=== PATIENT | male | born 1990 | race Caucasian/White ===

== ENCOUNTER 2016-12-23 18:35 | Inpatient (IN) | payer BC, OTHER ==
[~2016-12-23] VITALS: Ht 185.4 cm; Wt 79.8 kg
[2016-12-23] MEDS ORDERED: DICYCLOMINE HCL 20 MG TABLET PO PRN (22:00)
[2016-12-23] MEDS ORDERED: LORAZEPAM 2 MG/1 ML VIAL IM PRN (22:00)
[2016-12-23] MEDS ORDERED: ACETAMINOPHEN 325 MG TABLET PO PRN (22:00)
[2016-12-23] MEDS ORDERED: diphenhydrAMINE 50 MG CAPSULE PO PRN (22:00)
[2016-12-23] MEDS ORDERED: DIAZEPAM 10 MG TABLET PO PRN ×2 (22:00)
[2016-12-23] MEDS ORDERED: MAG HYDROX/AL HYDROX/SIMETH 30 ML LIQUID UDC PO PRN (22:00)
[2016-12-23] MEDS ORDERED: LOPERAMIDE HCL 2 MG CAPSULE PO PRN ×2 (22:00)
[2016-12-23] MEDS ORDERED: HYDROXYZINE PAMOATE 25 MG CAPSULE PO PRN (22:00)
[2016-12-23] MEDS ORDERED: CLONIDINE HCL 0.1 MG TABLET PO PRN (22:00)
[2016-12-23] MEDS ORDERED: ONDANSETRON 4 MG/2 ML VIAL IM PRN (22:00)
[2016-12-23] MEDS ORDERED: DIAZEPAM 5 MG TABLET PO PRN (22:00)
[2016-12-23] MEDS ORDERED: ONDANSETRON ODT 4 MG TAB.RAPDIS SL PRN (22:00)
[2016-12-23] MEDS ORDERED: IBUPROFEN 600 MG TABLET PO PRN (22:00)
[2016-12-23] MEDS ORDERED: MAGNESIUM HYDROXIDE 30 ML LIQUID UDC PO PRN (22:00)
[2016-12-23] MEDS ORDERED: MIRALAX 17 GM POWD.PACK PO PRN (22:00)
[2016-12-23] MEDS ORDERED: BUPRENORPHINE HCL 2 MG TAB.SUBL SL PRN (22:00)
[2016-12-23 23:00] VITALS: BP 124/75
[2016-12-23] MEDS ORDERED: DIAZEPAM 10 MG TABLET PO SCH (23:00)
--- NOTE | 2016-12-23 23:00 | NUR ---
ADMISSION NOTE Pt is 26 year old male, admitted to [facility] 3rd floor on 12/23/16 at 2223 Skin and body check done no contraband found, skin intact. Pt oriented to unit ad policies, escorted to rm 317. Pt aaox4, cooperative, able to ambulate with steady gait. Pt reports NKA, NKFA. Pt denies having PCP, states she goes to urgent care if needs medical care. Pt denies hospitalizations within last 5 yrs. Pt reports no PMH. Pt denies hx of seizures. Pt states she takes the following medications at home: 1. Trazodone 150 mg PO HS prn for sleep, last time taken 12/21/16 Substance use hx: Per pt, he relapsed 3.5 wks weeks ago after being sober for 37 days; pt provided the following information on drug use: 1. Xanax - pt started to take non-prescribed Xanax at age 24 (2 yrs ago), for last 3.5 weeks, he reported use 8-10 mg mg daily PO, last dose taken 12/22/16 in the amount of 8 mg 2. Heroin - pt started to use heroin at age 22 (4 yrs ago), for past 3.5 wks, pt reports using 2.5 - 3 g daily IV, last taken 12/23/16, in the amount of 2.5 g IV 3. ETOH (rum) - pt started to consume etoh at age 17 (9 yrs ago), is not considering alcohol as a problem,. Reports he drinks occasionally, once 1 -1 weeks, last drink - 1 pint of rum, on 12/21/16 4. Marijuana - pt reports she started to smoke marijuana at age 17 (9 yrs ago), smokes 1/8 of ounce every other day, last time he used this drug on 12/23/16, 1/8 oz by smoking Pt reports her longest period of sobriety was 10 months in 2014. Rehab/detox hx: 1. [place], [place] - May 2016 x 90 days 2. [facility] - Oct 2016 Pt reports smoking tobacco since 19 years old, approximately 1/2 pack per day. Provided with smoking cessation information, reinforcement needed. Pt appears cooperative, reports anxiety at this time, pt noted with difficulty to stay in one position, constantly moving arms/ legs. No tremors noted. Skin warm, dry. Denies n/v, headache, hallucinations. Denies SI/HI. COWS 3, CIWA 4. All extremities with full ROM. Pupils 2 mm bilat, PERRLA. RR unlabored lung sounds clear bilat. Heart rate regular, no murmurs, pt denies chest pain at this time. Cap refill < 3 sec. No edema noted. Bowel sounds active x 4, pt no n/v. VS; temp 97.6, HR 67, RR 16, SPO2 98%, BP 124/75, pain 0/10. Wt 176lb, Ht 6'1". Pt oriented to room and environment, with returned demonstration it application architect light use. Pt was able to provide urine, was sent to lab promptly. Side rails up x2, call light within reach, bed locked in lower position. MD Hawthorne notified
[2016-12-23 23:06] LABS: ETHANOL < 3 MG/DL (0-0)
[2016-12-23 23:09] LABS: ALANINE AMINOTRANSFERASE 21 U/L (16-63); ALBUMIN 4.3 g/dL (3.4-5.0); ALKALINE PHOSPHATASE 63 U/L (50-136); ASPARTATE AMINOTRANSFERASE 15 U/L (15-37); BILIRUBIN,TOTAL 0.5 mg/dL (0.2-1.0); CALCIUM 9.1 mg/dL (8.5-10.1); CARBON DIOXIDE 29 mmol/L (21-32); CHLORIDE 99 mmol/L (98-107); GFR 91 mL/min (>60); GLUCOSE 109 mg/dL (74-106); POTASSIUM 4.3 mmol/L (3.5-5.1); SODIUM SERUM 137 mmol/L (136-145); TOTAL PROTEIN, SERUM 7.9 g/dL (6.4-8.2); UREA NITROGEN, BLOOD 11 mg/dL (7-18)
[2016-12-23 23:12] LABS: BASOPHILS # (AUTO) 0.1 K/uL (0.0-8.0); BASOPHILS % (AUTO) 0.7 % (0.0-2.0); EOSINOPHILS # (AUTO) 0.2 K/uL (0.0-0.7); EOSINOPHILS % (AUTO) 1.5 % (0.0-7.0); HEMATOCRIT 38.3 % (36.7-47.1); HEMOGLOBIN 13.7 g/dL (12.5-16.3); LYMPHOCYTES # (AUTO) 1.9 K/uL (20.0-40.0); LYMPHOCYTES % (AUTO) 18.9 % (20.5-51.5); MEAN CORPUSCULAR HEMOGLOBIN 30.2 uug (23.8-33.4); MEAN CORPUSCULAR HGB CONC 36 g/dL (32.5-36.3); MEAN CORPUSCULAR VOLUME 84.7 fL (73.0-96.2); MONOCYTES # (AUTO) 0.8 K/uL (2.0-10.0); MONOCYTES % (AUTO) 7.4 % (0.0-11.0); NEUTROPHILS # (AUTO) 7.3 K/uL (1.8-8.9); NEUTROPHILS % (AUTO) 71.5 % (38.5-71.5); PLATELET COUNT (AUTO) 212 K/uL (152-348); RED BLOOD CELL COUNT(AUTO) 4.53 MIL/uL (4.06-5.63); WHITE BLOOD COUNT (AUTO) 10.3 K/uL (3.6-10.2)
[2016-12-23] MEDS ORDERED: DIAZEPAM 10 MG TABLET ONE (23:14)
[2016-12-23 23:19] LABS: THYROID STIMULATING HORMONE 0.427 mIU/mL (0.358-3.740)
[2016-12-23 23:38] LABS: *AMPHETAMINE, URINE NEGATIVE (NEGATIVE); *BARBITURATE, URINE NEGATIVE (NEGATIVE); *CANNABINOID, URINE POSITIVE (NEGATIVE); *COCCAINE, URINE NEGATIVE (NEGATIVE); *OPIATE, URINE POSITIVE (NEGATIVE); *PHENCYCLIDINE SCREEN,URINE NEGATIVE (NEGATIVE)
[2016-12-24] VITALS: BP 113/53
[2016-12-24 00:08] LABS: HIV-1 p24 ANTIGEN NON REACTIVE (NONREACTIVE); HIV-1/2 ANTIBODY NON REACTIVE (NONREACTIVE)
[2016-12-24 04:00] VITALS: BP 126/65
--- NOTE | 2016-12-24 04:00 | NUR ---
CIWA/COWS DEFERRED COWS/CIWA assessment deferred per MD order; pt sleeping soundly, fall precautions in place, will continue to monitor Addendum: 12/24/16 at 0645 by LAUREL BENJAMIN RN Amended: Links added.
--- NOTE | 2016-12-24 07:36 | NUR ---
Pt is 26 y o male, admitted for heroin, Xanax, etoh and marijuana dependence. Skin intact, VSS. Withdrawal s/s included anxiety, sweats. Pt received scheduled meds, no prns were given. Last COWS 1, CIWA 1 at 0000. No pMH, NKDA. Pt on fall and seizure precautions. Report endorsed to day shift nurse.
--- NOTE | 2016-12-24 07:55 | NUR ---
START OF SHIFT: PT IS LAYING IN BED WITH EYES CLOSED. RESPIRATIONS EVEN AND UNLABORED. BED LOW AND LOCKED. CALL BEE IN REACH. WILL CONTINUE TO MONITOR AND OFFER SUPPORT.
[2016-12-24 08:00] VITALS: BP 125/60
--- NOTE | 2016-12-24 08:20 | NUR ---
PT HAS A 45 HR. HE IS ASYMPTOMATIC AND RESPIRATIONS 14 EVEN AND UNLABORED.
[2016-12-24] MEDS: MULTIVITAMINS,THERAPEUTIC TABLET PO SCH (09:00)
[2016-12-24] MEDS: BUPRENORPHINE HCL 2 MG TAB.SUBL SL SCH ×3 (09:00→22:00)
[2016-12-24] MEDS ORDERED: TUBERCULIN,PURIF.PROT.DERIV. 5 TU/0.1 ML TEST ID ONE ×2 (09:00→15:00)
[2016-12-24] MEDS: DIAZEPAM 10 MG TABLET PO SCH ×3 (09:00→21:35)
--- NOTE | 2016-12-24 09:55 | NUR ---
COWS AND CIWA DEFERRED. AM MEDS HELD DUE TO SEDATION. RESPIRATIONS EVEN AND UNLABORED. CALL ALARCON IN REACH.
[2016-12-24 12:00] VITALS: BP 111/55
--- NOTE | 2016-12-24 12:26 | NUR ---
PT IS LAYING IN BED WITH EYES CLOSED. EASILY AROUSABLE. PULSE LOW AT 522. 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 HE STATES HE IS VERY TIRED AND WOULD LIKE TO SLEEP. DEFERRED COWS AND CIWA UNTIL PT IS AWAKE.
--- NOTE | 2016-12-24 15:49 | NUR ---
PT AWOKE AND PRESENTS WITH BLUNTED AFFECT AND DEPRESSED MOOD. HE STATES HE STILL FEELS A BIT DROWSY AND STATES HE DOES NOT NEED DETOX MEDS AT THIS TIME. HE STATES HE JUST GOT A TB TEST A MONTH AGO. CXR ORDERED PER . 1500 MEDS HELD.
[2016-12-24 16:00] VITALS: BP 134/54
--- NOTE | 2016-12-24 17:05 | NUR ---
PT STATES HE WANTS TO LEAVE. STAFF NOTIFIED AND MULTIDISCIPLINARY TEAM INTERVENED.
--- NOTE | 2016-12-24 18:32 | NUR ---
END OF SHIFT: PT SLEPT MOST OF SHIFT. 0800 AND 1500 MEDS HELD. CIWA AND COWS DEFERRED X 2. LAST COWS 5 CIWA 3. PT PRESENTS WITH BLUNTED AFFECT AND DEPRESSED MOOD. HE DENIES S/I AND H/I. PT STATED HE WANTED TO LEAVE AMA. MULTIDISCIPLINARY TEAM INTERVENED AND PT IS NOT GOING TO LEAVE TONIGHT BUT IS A RISK FOR AMA.HE REFUSED PPD. CXR ORDERED. WILL PASS SHIFT REPORT TO ONCOMING NIGHT NURSE.
[2016-12-24 20:00] VITALS: BP 134/84
--- NOTE | 2016-12-24 20:30 | NUR ---
START OF SHIFT NOTE: Patient woke up. Alert, oriented, verbally responsive. V/S-WNLs. Took his medications as ordered. Patient refused Subutex at 2100. No pain, mild body discomfort, mild nausea, no vomiting, mild body discomfort. Patient requested Trazodone PRN for insomnia. Medication was given. Tolerated well. Last CIWA-7. Last COWS - 6. No suicidal ideation noted. Patient continues on fall, seizure precautions. No fall, no seizure at this time. Bed in low position. Skin intact. Fluids, snack encouraged. Will continue to provide safe and supportive environment.
[2016-12-24] MEDS: TRAZODONE 50 MG TABLET PO PRN (21:35)
[2016-12-24] MEDS ORDERED: TRAZODONE 50 MG TABLET ONE (21:37)
[2016-12-25 00:27] VITALS: BP 130/78
--- NOTE | 2016-12-25 05:00 | NUR ---
Patient requested Robaxin as muscle relaxant, Vistaril for agitation. Medication was given as ordered. Tolerated well.
[2016-12-25 05:16] VITALS: BP 126/80
[2016-12-25] MEDS: METHOCARBAMOL 750 MG TABLET PO PRN ×2 (06:13→08:05)
--- NOTE | 2016-12-25 07:10 | NUR ---
END OF SHIFT NOTE: Patient slept well 8 hrs during the night. V/S-WNLs. Robaxin and Vistaril were given with effective result at 0500. Last CIWA - 5. Last COWS - 6. Patient refused labs this morning. Breathing even, unlabored. Skin intact. Abdomen soft, no distention. Mild body discomfort reported. No suicidal ideations noted. Will continue to monitor.
[2016-12-25 08:00] VITALS: BP 120/70
[2016-12-25] MEDS: MULTIVITAMINS,THERAPEUTIC TABLET PO SCH (08:05)
--- NOTE | 2016-12-25 08:15 | NUR ---
START OF SHIFT: RECEIVED PT A/O X 4. HE C/O SWEATS ,CHILLS,MUSCLE ACHES,STOMACH CRAMPS,RESTLESSNESS AND IRRITABILITY.HE IS ON SUBUTEX/VALIUM TAPER COWS 13 CIWA 5. SUBUTEX AND VALIUM GIVEN ORDERED. MVI REFUSED AND HE STATES IT WILL UPSET HIS STOMACH. PRN ROBAXIN AND PRN BENTYL GIVEN FOR MUSCLE AND STOMACH CRAMPS. ENCOURAGED INCREASED FLUIDS TO ASSIST IN FACILITATING DETOX PROCESS.WILL CONTINUE TO MONITOR AND PROVIDE SAFE AND SUPPORTIVE ENVIRONMENT.
[2016-12-25] MEDS ORDERED: DIAZEPAM 5 MG TABLET PO SCH (09:00)
[2016-12-25] MEDS ORDERED: BUPRENORPHINE HCL 2 MG TAB.SUBL SL SCH ×2 (09:00→15:00)
--- NOTE | 2016-12-25 09:15 | NUR ---
REASSESSMENT Pt denies aches or cramps at this time. Medication was effective.
--- NOTE | 2016-12-25 09:52 | NUR ---
RESUMED CARE All pertinent information was provided, to resume care at this time. Pt is stable, will continue to monitor.
[2016-12-25 13:08] VITALS: BP 101/60
[2016-12-25 14:12] LABS: HCV AB <0.1 s/co ratio (0.0-0.9); HEPATITIS B CORE AB, IgM Negative (Negative); HEPATITIS B SURFACE AG Negative (Negative)
[2016-12-25 15:13] LABS: *AMPHETAMINE, URINE NEGATIVE (NEGATIVE); *BARBITURATE, URINE NEGATIVE (NEGATIVE); *CANNABINOID, URINE POSITIVE (NEGATIVE); *COCCAINE, URINE NEGATIVE (NEGATIVE); *OPIATE, URINE POSITIVE (NEGATIVE); *PHENCYCLIDINE SCREEN,URINE NEGATIVE (NEGATIVE)
[2016-12-25 17:50] VITALS: BP 123/66
--- NOTE | 2016-12-25 19:07 | NUR ---
END OF SHIFT Endorsed to overnight cashier nurse. 26 year old male patient admitted on 12/23/16 for benzo, ETOH, opiate and marijuana dependence. Pt taper has discontinued and pt is medically cleared for discharge. V/S remain WNL, heart rate is low, that is pt baseline. No acute distress noted throughout shift. Most recent COWS are 3 and CIWA 2 at 1700. No PRN medication needed or administered at night. Urine was collected for UDS. Pt has been medically cleared for d/c. CXR was complete and WNL. Pt remains stable, ambulates with steady gait, has adequate caloric intake. Pt reports BMx1. Socializes with peers and encouraged to verbalize feelings. All needs met. Safety precautions are in place, overnight cashier to continue monitoring.
[2016-12-25 20:00] VITALS: BP 138/84
--- NOTE | 2016-12-25 20:00 | NUR ---
START OF SHIFT NOTE PATIENT ALERT AND ORIENTED X 4. RESPIRATION EVEN AND UNLABORED. PATIENT STATES HE'S FINE. NO N/V. DENIES ANY PAIN. PATIENT STATES HE DID NOT ATTEND GROUPS AND JUST HANGING OUT WITH FRIENDS HERE BECAUSE HE'S LEAVING TOMORROW. PATIENT STATES APPETITE IS GOOD AND DRINKING FLUIDS WELL. RECEIVED REPORT FROM DAY SHIFT NURSE, PATIENT IS A 26 YEAR OLD MALE, ADMITTED ON 12/23/16 FOR BENZO/OPIATE DEPENDENCE. PATIENT WAS ON TAPER AND WAS DISCONTINUE. PATIENT IS DISCHARGING TOMORROW. PATIENT FULL CODE, REGULAR DIET AND NO KNOWN ALLERGY. PATIENT RELAPSED 3.5 WEEKS AGO BEFORE ADMISSION. PATIENT'S DRUG OF CHOICE ARE HEROIN 2.5-3 GRAM FOR 4 YEARS, XANAX 8-10 MG FOR 2 YEARS, ETOH OCCASIONALLY FOR 6 YEARS AND MARIJUANA 1/8 GRAM EVERY OTHER DAY FOR 9 YEARS. ON FALL SEIZURE PRECAUTION. SKIN INTACT. SAFETY MEASURES IN PLACE. CALL LIGHT IN REACH. WILL CONTINUE TO MONITOR.
[2016-12-25] MEDS: TRAZODONE 50 MG TABLET PO PRN (21:39)
--- NOTE | 2016-12-25 21:39 | NUR ---
PRN TRAZADONE ADMINISTRATION PATIENT REQUESTS FOR SLEEP AID. PRN TRAZADONE GIVEN. WILL MONITOR FOR EFFECTIVENESS
--- NOTE | 2016-12-25 23:00 | NUR ---
PRN TRAZADONE RE-ASSESSMENT PATIENT IN BED WITH EYES CLOSED. NO S/S OF DISTRESS. RESPIRATION EVEN AND UNLABORED. SAFETY MEASURES IN PLACE. CALL LIGHT IN REACH. WILL CONTINUE TO MONITOR
--- NOTE | 2016-12-26 | NUR ---
VS/CIWA/COWS PATIENT REFUSED VS CHECK. UNABLE TO COMPLETE COWS/CIWA ASSESSMENT. EDUCATED ON RISKS/BENEFITS BUT STILL REFUSED. RESPIRATION EVEN AND UNLABORED . RR 15
[2016-12-26] MEDS ORDERED: METH-33 PO (00:44)
[2016-12-26] MEDS ORDERED: DICY20TA28 PO (00:44)
[2016-12-26] MEDS ORDERED: HYDR-3895 PO (00:44)
[2016-12-26] MEDS ORDERED: Ibuprofen PO (00:44)
--- NOTE | 2016-12-26 04:00 | NUR ---
VS/CIWA/COWS PATIENT REFUSED VS CHECK. UNABLE TO COMPLETE COWS/CIWA ASSESSMENT. EDUCATED ON RISKS/BENEFITS BUT STILL REFUSED. RESPIRATION EVEN AND UNLABORED . RR 15
--- NOTE | 2016-12-26 07:32 | NUR ---
END OF SHIFT NOTE PATIENT ALERT AND ORIENTED X 4. RESPIRATION EVEN AND UNLABORED. PATIENT STATES HE'S FINE. NO N/V. DENIES ANY PAIN. PATIENT STATES HE DID NOT ATTEND GROUPS AND JUST HANGING OUT WITH FRIENDS HERE BECAUSE HE'S LEAVING TODAY. PATIENT STATES APPETITE IS GOOD AND DRINKING FLUIDS WELL. PATIENT WAS MEDICALLY CLEARED AND DISCHARGING TODAY. PATIENT DID NOT REQUIRE ANY PRN MEDICATION DURING SHIFT. PRN TRAZADONE GIVEN FOR SLEEP. EFFECTIVE. PATIENT RELAPSED 3.5 WEEKS AGO BEFORE ADMISSION. PATIENT'S DRUG OF CHOICE ARE HEROIN 2.5-3 GRAM FOR 4 YEARS, XANAX 8-10 MG FOR 2 YEARS, ETOH OCCASIONALLY FOR 6 YEARS AND MARIJUANA 1/8 GRAM EVERY OTHER DAY FOR 9 YEARS. ON FALL SEIZURE PRECAUTION. SKIN INTACT. SAFETY MEASURES IN PLACE. CALL LIGHT IN REACH. WILL CONTINUE TO MONITOR. SLEPT 7 HOURS. FLUID INTAKE 946 ML. VOIDED X 1 . NO BM. LAST COWS 1 AND CIWA 0. Addendum: 12/26/16 at 0734 by ROXIE GOOD LVN CLARIFICATION. PATIENT DID RECEIVE PRN TRAZADONE DURING SHIFT.
[2016-12-26 08:00] VITALS: BP 127/68
--- NOTE | 2016-12-26 08:00 | NUR ---
START OF SHIFT Pt 26 y/o male admitted for BZO/ opi dependence. Pt received in room with eyes closed resting, but easily arousable to name. Pt alert and oriented to name, place, and time. Perrla. Skin warm and dry to touch. Respirations even and unlabored. It was reported that pt slept for 7 hours last night. Bed on lowest position with side rails x2 up for safety. Call light within reach. No distress noted at this time. Pt is scheduled to be discharged today.
[2016-12-26] MEDS: MULTIVITAMINS,THERAPEUTIC TABLET PO SCH (08:34)
[2016-12-26] MEDS ORDERED: BUPRENORPHINE HCL 2 MG TAB.SUBL SL SCH (09:00)
[2016-12-26] MEDS ORDERED: DIAZEPAM 5 MG TABLET PO SCH (09:00)
--- NOTE | 2016-12-26 09:31 | NUR ---
DISCHARGE Pt discharged to [facility] via private transport. Pt alert and oriented to name, place, and time. Perrla. Skin warm and dry touch. Respirations even unlabored. All discharge papers and prescriptions packed in bag. Pt states does not have any home medications. No belongings in cabinet noted. Pt excited about discharge. No distress noted. No signs of withdrawal noted.
[2016-12-27] MEDS ORDERED: DIAZEPAM 5 MG TABLET PO SCH (09:00)
[2016-12-27] MEDS ORDERED: BUPRENORPHINE HCL 2 MG TAB.SUBL SL SCH (09:00)
[2017-01-01 11:09] LABS: *CANNABINOID (THC) Positive (.); *CODEINE Positive (.); *HYDROMORPHONE Positive (.); *OPIATES Positive ng/mL (Cutoff=300)
== END 2016-12-26 09:31 | disposition home or self-care (01) | DRG 895 ==
LOC: UNDOADMIN 19:56 → SRC 19:56
PROVIDERS: ADMIT Internal Medicine; ATTEND Internal Medicine
PROC: HZ2ZZZZ Detoxification Services for Substance Abuse Treatment (ICD-10-PCS; principal; 2016-12-23)
PROC: HZ31ZZZ Individual Counseling for Substance Abuse Treatment, Behavioral (ICD-10-PCS; 2016-12-25)
DX: F11.23 Opioid dependence with withdrawal (principal); F17.210 Nicotine dependence, cigarettes, uncomplicated; F13.230 Sedative, hypnotic or anxiolytic dependence with withdrawal, uncomplicated; F12.10 Cannabis abuse, uncomplicated; D72.829 Elevated white blood cell count, unspecified; Z76.5 Malingerer [conscious simulation]; F10.10 Alcohol abuse, uncomplicated; Y90.9 Presence of alcohol in blood, level not specified; R73.9 Hyperglycemia, unspecified
CPT/HCPCS: 36415; 71010; 80307; 80349; 80361; 83735; 84443; 85025; 86592; 86705; 86803; 87340; 87806; A4663; G6040-TC